=== PATIENT | male | born 1980 | race African-American/Black ===

== ENCOUNTER 2023-06-19 18:29 | Emergency (ER) | payer OTHER ==
[~2023-06-19] VITALS: Ht 188 cm; Wt 74.8 kg
[2023-06-19] MEDS: IV NS 0.9% 1,000 ML BAG IV ONE (18:59)
[2023-06-19 19:04] LABS: BASOPHILS # (AUTO) 0.1 K/uL (0.0-0.2); BASOPHILS % (AUTO) 0.7 % (0.0-2.0); HEMATOCRIT 50 % (39-51); LYMPHOCYTES # (AUTO) 1.7 K/uL (0.8-4.8); LYMPHOCYTES % (AUTO) 14.1 % (20.0-44.0); MEAN CORPUSCULAR HEMOGLOBIN 23 PG (26.0-33.0); MEAN CORPUSCULAR HGB CONC 32 g/dl (31.0-36.0); MEAN CORPUSCULAR VOLUME 72 fL (80-96); MONOCYTES # (AUTO) 1.2 K/uL (0.1-1.30); MONOCYTES % (AUTO) 10.1 % (2.0-12.0); NEUTROPHILS # (AUTO) 8.9 K/uL (1.8-8.9); NEUTROPHILS % (AUTO) 75.1 % (43.0-81.0); PLATELET COUNT (AUTO) 378 K/uL (150-450); RED BLOOD CELL COUNT(AUTO) 7.02 MIL/uL (4.5-6.0); WHITE BLOOD COUNT (AUTO) 11.9 K/uL (4.3-11.0)
[2023-06-19] MEDS ORDERED: diphenhydrAMINE HCL 50 MG/ML VIAL ONE (19:10)
[2023-06-19] MEDS ORDERED: METOCLOPRAMIDE HCL 10 MG/2 ML VIAL ONE (19:10)
[2023-06-19] MEDS: METOCLOPRAMIDE HCL 10 MG/2 ML VIAL IV ONE (19:19)
[2023-06-19] MEDS: diphenhydrAMINE HCL 50 MG/ML VIAL IV ONE (19:19)
[2023-06-19 19:20] LABS: CALCIUM, SERUM 10.2 mg/dL (8.5-10.1); POTASSIUM 3.9 mmol/L (3.5-5.1)
[2023-06-19 19:26] LABS: ALBUMIN 5.6 g/dL (3.4-5.0); BILIRUBIN,DIRECT 0.2 mg/dL (0.0-0.2); BILIRUBIN,TOTAL 0.8 mg/dL (0.2-1.0); TOTAL PROTEIN, SERUM 9.7 g/dL (6.4-8.2)
[2023-06-19] MEDS: IV NS 0.9% 1,000 ML IV SCH (21:30)
[2023-06-19] MEDS ORDERED: ACETAMINOPHEN 325 MG TABLET PO PRN (21:30)
[2023-06-19 22:44] LABS: LACTIC ACID 2.2 mmol/L (0.4-2.0)
[2023-06-19] MEDS ORDERED: ONDANSETRON HCL/PF 4 MG/2 ML VIAL ONE (23:25)
[2023-06-19] MEDS: ONDANSETRON HCL/PF 4 MG/2 ML VIAL IVP PRN (23:34)
[2023-06-20] MEDS ORDERED: MORPHINE SULFATE INJ 2 MG/ML DISP.SYRIN ONE (00:42)
[2023-06-20] MEDS: MORPHINE SULFATE INJ 2 MG/ML DISP.SYRIN IV PRN (00:47)
[2023-06-20 01:22] VITALS: BP 154/77; TEMP 98.5; O2SAT 96
== END 2023-06-20 01:22 | disposition short-term general hospital (02) ==
LOC: ER 18:36
DX: N17.9 Acute kidney failure, unspecified (principal); E86.0 Dehydration; R11.2 Nausea with vomiting, unspecified
CPT/HCPCS: 99285; 96374; 96361; 76770; 96375 ×2; 85025; 80048; 82550; 83605; 83690; 80076; 36415; 82553; J1200; J2765; J2405; J7030 ×2; J2270